=== PATIENT | male | born 1945 | race Caucasian/White ===

== ENCOUNTER → 2018-09-12 | Outpatient (CLI) | payer MEDICARE, BC ==
[~2018-09-12] MED LIST: ALPR.5 PO; AMLO5 PO; Adult Low Dose81 MG PO; CARV6.25 PO; Colace100 MG PO; DESO.05TCA TOP; FLUT44OIA INH; FURO40 PO; HYDR1TAB94 PO; LANS15EC PO; Micro-K10 MEQ PO; PRAV20 PO; VALS80 PO
== END | disposition home or self-care (01) ==
LOC: PLD 14:06 → LAB SHORT 14:06
DX: L30.8 Other specified dermatitis (principal)
CPT/HCPCS: 88305; 88312

== ENCOUNTER → 2018-11-12 | Outpatient (CLI) | payer MEDICARE, BC | END | disposition home or self-care (01) | LOC: LAB SHORT 13:36 → LAB 13:36 | DX: L73.8 Other specified follicular disorders (principal) | CPT/HCPCS: 87070; 87205 ==

== ENCOUNTER 2019-06-24 13:30 | Day surgery (SDC) | payer MEDICARE, BC ==
[~2019-06-24] VITALS: Ht 175.3 cm; Wt 75.6 kg
[2019-06-24] MEDS ORDERED: ATOR40TA (13:50)
[2019-06-24] MEDS ORDERED: LOSA50 (13:51)
[2019-06-24] MEDS ORDERED: TEMA15 (13:51)
== END 2019-06-24 15:35 | disposition home or self-care (01) ==
LOC: ORSCSDS 13:30
PROVIDERS: Internal Medicine Gastroenterology
PROC: 0DBL8ZX Excision of Transverse Colon, Via Natural or Artificial Opening Endoscopic, Diagnostic (ICD-10-PCS; principal; 2019-06-24 14:45)
PROC: 0DBM8ZX Excision of Descending Colon, Via Natural or Artificial Opening Endoscopic, Diagnostic (ICD-10-PCS; principal; 2019-06-24 14:45)
PROC: 0DBN8ZX Excision of Sigmoid Colon, Via Natural or Artificial Opening Endoscopic, Diagnostic (ICD-10-PCS; principal; 2019-06-24 14:45)
PROC: 0DBH8ZX Excision of Cecum, Via Natural or Artificial Opening Endoscopic, Diagnostic (ICD-10-PCS; principal; 2019-06-24 14:45)
DX: R15.9 Full incontinence of feces (principal); D12.0 Benign neoplasm of cecum; D12.3 Benign neoplasm of transverse colon; D12.4 Benign neoplasm of descending colon; D12.5 Benign neoplasm of sigmoid colon; K57.30 Diverticulosis of large intestine without perforation or abscess without bleeding; K64.8 Other hemorrhoids; R10.84 Generalized abdominal pain; Z86.010 Personal history of colon polyps; Z95.1 Presence of aortocoronary bypass graft; Z80.0 Family history of malignant neoplasm of digestive organs; Z87.891 Personal history of nicotine dependence; Z79.82 Long term (current) use of aspirin; Z79.899 Other long term (current) drug therapy
CPT/HCPCS: 88305; J2704; J7120

== ENCOUNTER → 2019-09-18 | Outpatient (CLI) | payer MEDICARE, BC ==
[~2019-09-18] MED LIST changes: +ATOR40TA; +LOSA50; +TEMA15
== END | disposition home or self-care (01) ==
LOC: PLD 12:08 → LAB SHORT 12:08
DX: L30.8 Other specified dermatitis (principal)
CPT/HCPCS: 88305

== ENCOUNTER 2020-06-09 05:40 | Day surgery (SDC) | payer MEDICARE, BC ==
[~2020-06-09] VITALS: Ht 175.3 cm; Wt 77.0 kg
[~2020-06-09 05:40] MED LIST changes: +ARNUITY ELLIPT50 MCG; +ASPIR 8181 M1 PO; -ATOR40TA; +ATOR40TA PO; -Adult Low Dose81 MG PO; +CYAN500 SL; +CYCL0.05OP BOTHEYES; +DESO.05TL; -FLUT44OIA INH; -LOSA50; +LOSA50 PO; +MELATONIN5 M1 PO
[2020-06-09] MEDS ORDERED: CLOP75 PO (09:21)
--- NOTE | 2020-06-09 11:30 | NUR ---
PT NEW PRESCRIPTION FOR PLAVIX AND NEW MEDICATION CHANGES CALLED TO [facility].
--- NOTE | 2020-06-09 11:41 | NUR ---
PT RESTING COMFORTABLY. NADN. VSS. R FEMORAL SITE REMAINS STABLE.
--- NOTE | 2020-06-09 13:35 | NUR ---
PT DRESSES SELF WITHOUT DIFF. R FEMORAL SITE REMAINS STABLE AND CLEAR. PT VERBALIZES UNDERSTANDING WRITTEN AND VERBAL ORDERS. PT IV DC'D. CATH INTACT. PRESSURE DRESSING APPLIED. NO BLEEDING NOTED. PT DC TO HOME VIA S/O BY WC BY THIS NURSE.
== END 2020-06-09 13:35 | disposition home or self-care (01) ==
LOC: MHTC 05:40
PROC: B201YZZ Plain Radiography of Multiple Coronary Arteries using Other Contrast (ICD-10-PCS; principal; 2020-06-09)
PROC: 4A023N7 Measurement of Cardiac Sampling and Pressure, Left Heart, Percutaneous Approach (ICD-10-PCS; principal; 2020-06-09)
DX: I25.118 Atherosclerotic heart disease of native coronary artery with other forms of angina pectoris (principal); I25.718 Atherosclerosis of autologous vein coronary artery bypass graft(s) with other forms of angina pectoris; I25.82 Chronic total occlusion of coronary artery; J44.9 Chronic obstructive pulmonary disease, unspecified; Z88.2 Allergy status to sulfonamides; Z88.8 Allergy status to other drugs, medicaments and biological substances; E78.5 Hyperlipidemia, unspecified; I11.0 Hypertensive heart disease with heart failure; I50.9 Heart failure, unspecified; Z95.2 Presence of prosthetic heart valve; Z79.899 Other long term (current) drug therapy; Z79.82 Long term (current) use of aspirin; Z87.891 Personal history of nicotine dependence
CPT/HCPCS: 93459; 99152; 99153; C1769; C1894; G0278; J1644; J2250; J3010; J7030; J7050; Q9967

== ENCOUNTER 2022-01-05 09:47 | Day surgery (SDC) | payer MEDICARE, BC ==
[~2022-01-05] VITALS: Ht 175.3 cm; Wt 77.3 kg
[~2022-01-05 09:47] MED LIST changes: +CLOP75 PO
[2022-01-05] MEDS ORDERED: QUET25 PO (10:33)
--- NOTE | 2022-01-05 11:21 | NUR ---
01/05/22 1121 STAR JARRETT spoke with stephen and his family. advised of DELAY TO HIS PROCEDURE PRIOR PT'S PROCEDURE IS RUNNING LONG AND REQUIRING EXTRA TIME. CALL LIGHT WITHIN REACH. ENGAGED IN PRE\POST OP TEACHING. ALL QUESTIONS ANSWERED. PT READY FOR OR
--- NOTE | 2022-01-05 12:57 | NUR ---
01/05/22 Jitendra Ferguson 2% LIDOCAINE WITH EPI 1:100,000 DILUTED 1:1 WITH 0.9% NACL TO ACHIEVE SOLUTION OF 1% LIDOCAINE WITH EPI 1:200,000. 6 ML'S INJ INTO OPSITE BY DR CARROLL AT 1233.
--- NOTE | 2022-01-05 13:34 | NUR ---
01/05/22 1334 MELECIO CHIN PT COUGHING UP BLOODY SPUTUM, DR CARROLL AT BEDSIDE, ORDER TO GIVE PT AFRIN TO DECREASE BLEEDING, RN GRABBING AFRIN NOW
--- NOTE | 2022-01-05 13:39 | NUR ---
01/05/22 1339 MELECIO CHIN ADMINISTERED IN NOSE BY PROMISE ZURITA TO CATCH BLOODY DRAINAGE PT TOLERATING WELL
== END 2022-01-05 14:23 | disposition home or self-care (01) ==
LOC: ORSCSDS 09:47
PROVIDERS: Otolaryngology
PROC: 09TL0ZZ Resection of Nasal Turbinate, Open Approach (ICD-10-PCS; principal; 2022-01-05 11:00)
PROC: 09BM0ZZ Excision of Nasal Septum, Open Approach (ICD-10-PCS; principal; 2022-01-05 11:00)
DX: J34.2 Deviated nasal septum (principal); J34.3 Hypertrophy of nasal turbinates; I25.2 Old myocardial infarction; I10 Essential (primary) hypertension; J44.9 Chronic obstructive pulmonary disease, unspecified; K21.9 Gastro-esophageal reflux disease without esophagitis; Z87.891 Personal history of nicotine dependence; Z79.01 Long term (current) use of anticoagulants; Z79.82 Long term (current) use of aspirin; Z79.899 Other long term (current) drug therapy
CPT/HCPCS: A9270; J0171; J1100; J1885; J2250; J2370; J2405; J2704; J2710; J3010

== ENCOUNTER 2022-05-31 06:00 | Day surgery (SDC) | payer MEDICARE, BC ==
[~2022-05-31] VITALS: Ht 175.3 cm; Wt 77.1 kg
[~2022-05-31 06:00] MED LIST changes: +QUET25 PO
--- NOTE | 2022-05-31 10:13 | NUR ---
Patient up to Ambulate independently. Gait steady. Discharge instructions reviewed with patient. Patient verbalizes understanding. Copy given to patient to take home, WELL . Patient States Post-Procedure ride home has been arranged. Discharged via wheelchair to private car for ride home.
== END 2022-05-31 10:13 | disposition home or self-care (01) ==
LOC: ORSCMMR 06:00 → ORD 07:30 → ORSCMMR 07:30
PROVIDERS: Surgery
PROC: 8E0W4CZ Robotic Assisted Procedure of Trunk Region, Percutaneous Endoscopic Approach (ICD-10-PCS; principal; 2022-05-31 07:30)
PROC: 0YU54JZ Supplement Right Inguinal Region with Synthetic Substitute, Percutaneous Endoscopic Approach (ICD-10-PCS; principal; 2022-05-31 07:30)
DX: K40.90 Unilateral inguinal hernia, without obstruction or gangrene, not specified as recurrent (principal); K66.0 Peritoneal adhesions (postprocedural) (postinfection); I10 Essential (primary) hypertension; I25.10 Atherosclerotic heart disease of native coronary artery without angina pectoris; Z87.891 Personal history of nicotine dependence; Z86.73 Personal history of transient ischemic attack (TIA), and cerebral infarction without residual deficits; F03.90 Unspecified dementia, unspecified severity, without behavioral disturbance, psychotic disturbance, mood disturbance, and anxiety; F32.A Depression, unspecified; Z79.02 Long term (current) use of antithrombotics/antiplatelets; Z79.899 Other long term (current) drug therapy; Z79.82 Long term (current) use of aspirin
CPT/HCPCS: 49650; S2900; C1781; J0690; J1100; J1885; J2370; J2405; J2704; J2795; J3010; J7120

== ENCOUNTER 2022-10-26 07:46 | Day surgery (SDC) | payer MEDICARE, BC ==
[~2022-10-26] VITALS: Ht 175.3 cm; Wt 76.4 kg
[2022-10-26] MEDS ORDERED: CLOP75 (08:05)
[2022-10-26] MEDS ORDERED: Seroquel Xr50 MG (08:06)
== END 2022-10-26 09:42 | disposition home or self-care (01) ==
LOC: ORSCSDS 07:46
PROVIDERS: Internal Medicine Gastroenterology
PROC: 0DBH8ZX Excision of Cecum, Via Natural or Artificial Opening Endoscopic, Diagnostic (ICD-10-PCS; principal; 2022-10-26 09:00)
DX: D50.9 Iron deficiency anemia, unspecified (principal); Z86.010 Personal history of colon polyps; K57.30 Diverticulosis of large intestine without perforation or abscess without bleeding; Z80.0 Family history of malignant neoplasm of digestive organs; D12.0 Benign neoplasm of cecum; Z87.891 Personal history of nicotine dependence; Z79.82 Long term (current) use of aspirin; Z79.899 Other long term (current) drug therapy
CPT/HCPCS: 88305; J2704; J7120

== ENCOUNTER 2022-12-22 20:40 | Emergency (ER) | payer MEDICARE, BC ==
[~2022-12-22] VITALS: Ht 175.3 cm; Wt 76.2 kg
[~2022-12-22 20:40] MED LIST changes: +CLOP75; +Seroquel Xr50 MG
[2022-12-22 21:13] VITALS: BP 195/102
[2022-12-22 21:50] LABS: BASOPHILS ABSOLUTE AUTO 0.05 K/mm3 (0.00-0.23); BASOPHILS PERCENT AUTO 1 % (0-2); EOSINOPHILS ABSOLUTE AUTO 0.11 K/mm3 (0.00-0.68); EOSINOPHILS PERCENT AUTO 1 % (0-6); Hematocrit 39.5 % (37.0-53.0); Hemoglobin 13.8 g/dL (13.5-17.5); IMMATURE GRAN ABSOLUTE AUTO 0.02 K/mm3 (0.00-0.10); IMMATURE GRAN PERCENT AUTO 0 % (0-1); LYMPHOCYTES ABSOLUTE AUTO 1.19 K/mm3 (0.84-5.20); LYMPHOCYTES PERCENT AUTO 15 % (21-46); MONOCYTES ABSOLUTE AUTO 0.61 K/mm3 (0.16-1.47); MONOCYTES PERCENT AUTO 8 % (4-13); Mean Corpuscular HGB 33.5 pg (26.0-34.0); Mean Corpuscular HGB Conc 34.9 g/dL (31.5-36.5); Mean Corpuscular Volume 96 fL (80-100); Mean Platelet Volume 10.7 fL (9.1-12.4); NEUTROPHILS ABSOLUTE AUTO 5.89 K/mm3 (1.96-9.15); NEUTROPHILS PERCENT AUTO 75 % (41-73); Platelet Count 162 K/mm3 (150-400); RDW Coefficient Variation 11.9 % (11.7-14.2); RDW Standard Deviation 41.9 fL (35.1-46.3); Red Blood Cell Count 4.12 M/mm3 (4.30-5.90); White Blood Cell Count 7.87 K/mm3 (4.00-11.30)
[2022-12-22 22:11] LABS: Albumin, Blood 4.1 g/dL (3.4-5.0); Albumin/Globulin Ratio 1.1 (0.8-1.8); Bilirubin, Total 0.9 mg/dL (0.1-1.0); Bun/Creatinine Ratio 15.6 (12.0-20.0); Calcium, Blood 8.9 mg/dL (8.5-10.1); Creatinine, Blood 0.84 mg/dL (0.60-1.20); Globulin, Blood 3.6 g/dL (2.2-4.0); Potassium, Blood 4.6 mmol/L (3.5-5.5); Total Protein, Blood 7.7 g/dL (6.4-8.2)
== END 2022-12-23 00:44 | disposition home or self-care (01) ==
LOC: ER 20:40
PROVIDERS: Student in an Organized Health Care Education/Training Program
DX: I10 Essential (primary) hypertension (principal); Z88.2 Allergy status to sulfonamides; Z91.048 Other nonmedicinal substance allergy status; Z88.8 Allergy status to other drugs, medicaments and biological substances; Z79.899 Other long term (current) drug therapy; Z79.84 Long term (current) use of oral hypoglycemic drugs; E78.00 Pure hypercholesterolemia, unspecified; K21.9 Gastro-esophageal reflux disease without esophagitis
CPT/HCPCS: 36415; 80053; 85025; 93005; 93010

== ENCOUNTER 2023-09-29 10:46 | Emergency (ER) | payer MEDICARE, BC ==
[~2023-09-29] VITALS: Ht 177.8 cm; Wt 81.7 kg
[2023-09-29 11:46] LABS: BASOPHILS ABSOLUTE AUTO 0.06 K/mm3 (0.00-0.23); BASOPHILS PERCENT AUTO 1 % (0-2); EOSINOPHILS ABSOLUTE AUTO 0.25 K/mm3 (0.00-0.68); EOSINOPHILS PERCENT AUTO 4 % (0-6); Hematocrit 37.6 % (37.0-53.0); IMMATURE GRAN ABSOLUTE AUTO 0.01 K/mm3 (0.00-0.10); IMMATURE GRAN PERCENT AUTO 0 % (0-1); LYMPHOCYTES ABSOLUTE AUTO 1.37 K/mm3 (0.84-5.20); LYMPHOCYTES PERCENT AUTO 24 % (21-46); MONOCYTES ABSOLUTE AUTO 0.67 K/mm3 (0.16-1.47); MONOCYTES PERCENT AUTO 12 % (4-13); Mean Corpuscular HGB 32.6 pg (26.0-34.0); Mean Corpuscular HGB Conc 34.6 g/dL (31.5-36.5); Mean Corpuscular Volume 94 fL (80-100); Mean Platelet Volume 10.7 fL (9.1-12.4); NEUTROPHILS ABSOLUTE AUTO 3.42 K/mm3 (1.96-9.15); NEUTROPHILS PERCENT AUTO 59 % (41-73); Platelet Count 169 K/mm3 (150-400); RDW Coefficient Variation 11.9 % (11.7-14.2); RDW Standard Deviation 41.2 fL (35.1-46.3); Red Blood Cell Count 3.99 M/mm3 (4.30-5.90); White Blood Cell Count 5.78 K/mm3 (4.00-11.30)
[2023-09-29 11:46] LABS: International Normalized Ratio 1.08; Prothrombin Time Results 11.3 Sec (9.7-11.5)
[2023-09-29 12:10] LABS: Albumin, Blood 3.9 g/dL (3.4-5.0); Albumin/Globulin Ratio 1.1 (0.8-1.8); Bilirubin, Total 0.6 mg/dL (0.1-1.0); Bun/Creatinine Ratio 12.3 (12.0-20.0); Creatinine, Blood 0.82 mg/dL (0.60-1.20); Globulin, Blood 3.6 g/dL (2.2-4.0); Potassium, Blood 4.1 mmol/L (3.5-5.5); Total Protein, Blood 7.5 g/dL (6.4-8.2)
[2023-09-29 15:45] VITALS: BP 170/90
== END 2023-09-29 15:46 | disposition home or self-care (01) ==
LOC: ER 10:46
PROVIDERS: Physician Assistant
DX: G45.9 Transient cerebral ischemic attack, unspecified (principal); Z88.2 Allergy status to sulfonamides; Z88.8 Allergy status to other drugs, medicaments and biological substances; Z91.048 Other nonmedicinal substance allergy status; Z79.899 Other long term (current) drug therapy; Z79.82 Long term (current) use of aspirin; I10 Essential (primary) hypertension; E78.00 Pure hypercholesterolemia, unspecified; K21.9 Gastro-esophageal reflux disease without esophagitis
CPT/HCPCS: 70450; 80053; 85025; 85610; 93005; 93010; 93242; 93306; 93880; 99285-25

== ENCOUNTER → 2025-06-23 | Outpatient (CLI) | payer MEDICARE, BC ==
[2025-06-23 11:29] LABS: BASOPHILS ABSOLUTE AUTO 0.06 K/mm3 (0.00-0.23); BASOPHILS PERCENT AUTO 1 % (0-2); EOSINOPHILS ABSOLUTE AUTO 0.21 K/mm3 (0.00-0.68); EOSINOPHILS PERCENT AUTO 4 % (0-6); Hematocrit 36.9 % (37.0-53.0); Hemoglobin 13.0 g/dL (13.5-17.5); IMMATURE GRAN ABSOLUTE AUTO 0.00 K/mm3 (0.00-0.10); IMMATURE GRAN PERCENT AUTO 0 % (0-1); LYMPHOCYTES ABSOLUTE AUTO 1.17 K/mm3 (0.84-5.20); LYMPHOCYTES PERCENT AUTO 22 % (21-46); MONOCYTES ABSOLUTE AUTO 0.38 K/mm3 (0.16-1.47); MONOCYTES PERCENT AUTO 7 % (4-13); Mean Corpuscular HGB Conc 35.2 g/dL (31.5-36.5); Mean Corpuscular Volume 98 fL (80-100); NEUTROPHILS ABSOLUTE AUTO 3.48 K/mm3 (1.96-9.15); NEUTROPHILS PERCENT AUTO 66 % (41-73); NRBC ABSOLUTE 0.00 K/mm3 (0.00-0.02); NRBC Auto 0.0 /100 WBC (0.0-0.2); Platelet Count 180 K/mm3 (150-400); RDW Coefficient Variation 12.3 % (11.7-14.2); RDW Standard Deviation 44.6 fL (35.1-46.3)
[2025-06-23 12:45] LABS: LDL/HDL RATIO 1.0
[2025-06-23 12:46] LABS: Alanine Aminotransfer (ALT/SGP 34 U/L (12-78); Albumin, Blood 4.0 g/dL (3.4-5.0); Albumin/Globulin Ratio 1.2 (0.8-1.8); Anion Gap 8 mmol/L (3-11); Aspartate Aminotrans (AST/SGOT 27 U/L (12-37); Bilirubin, Total 1.0 mg/dL (0.1-1.0); Blood Urea Nitrogen 9 mg/dL (8-24); CHOL/HDL RATIO 2.6; CO2, Blood 29 mmol/L (21-32); Calcium, Blood 9.4 mg/dL (8.5-10.1); Chloride, Blood 100 mmol/L (98-108); Cholesterol 121 mg/dL (50-200); Creatinine, Blood 0.81 mg/dL (0.60-1.20); Globulin, Blood 3.3 g/dL (2.2-4.0); Glucose, Blood 131 mg/dL (70-99); HDL Cholesterol 47 mg/dL (>39); Low Density Lipoprotein Chol 49 mg/dL (0-110); Potassium, Blood 3.8 mmol/L (3.5-5.5); Prostate Specific Antigen 1.010 ng/mL (0.000-4.000); Sodium, Blood 133 mmol/L (136-145); Thyroid Stimulating Hormone 3.030 uIU/mL (0.360-4.800); Total Protein, Blood 7.3 g/dL (6.4-8.2); Triglycerides 126 mg/dL (30-160); Very Low Density Lipoprot Chol 25 mg/dL (6-32)
== END ==
LOC: LAB SHORT 11:14 → LAB 11:14
PROVIDERS: Family Medicine
DX: I10 Essential (primary) hypertension (principal); R53.83 Other fatigue; N42.9 Disorder of prostate, unspecified
CPT/HCPCS: 80053; 80061; 84153; 84443; 85025